=== PATIENT | female | born 1945 | race Caucasian/White ===

== ENCOUNTER 2022-10-09 11:39 | Day surgery (SDC) | payer MEDICARE ==
[2022-10-09] MEDS ORDERED: LIDOCAINE HCL 2% 100 MG/5 ML IJ ONE (11:40)
[2022-10-09] MEDS ORDERED: Reglan 10 MG/2 ML ONE (12:07)
[2022-10-09] MEDS ORDERED: Pepcid 20 MG VIAL IV ONE (12:07)
[2022-10-09] MEDS ORDERED: DIPRIVAN 200 MG/20 ML IV ONE (13:19)
[2022-10-09] MEDS ORDERED: Lactated Ringers 1,000 ML IV ONE (14:42)
--- NOTE | 2022-10-09 18:33 | XRAY ---
Indication: Right C2-C4 MBB. Intraoperative fluoroscopy provided for 13 seconds. 3 digital spot image submitted for interpretation demonstrates posterior needle tips projecting over the expected right C2-C4 nerve roots. Correlate with intraoperative findings/report.
--- NOTE | 2022-10-09 18:56 | XRAY ---
13 seconds of fluoroscopy was used in surgery for a right C2-C4 MBB.
== END 2022-10-09 13:46 | disposition home or self-care (01) ==
LOC: SDC-PAIN 11:39
PROVIDERS: ATTEND Psychiatry & Neurology Pain Medicine
DX: M47.812 Spondylosis without myelopathy or radiculopathy, cervical region (principal); E11.9 Type 2 diabetes mellitus without complications; Z79.899 Other long term (current) drug therapy
CPT/HCPCS: 64490; 64491; 72040; 77002; 82947; J2704

== ENCOUNTER 2022-11-20 10:07 | Day surgery (SDC) | payer MEDICARE ==
[2022-11-20] MEDS ORDERED: LIDOCAINE HCL 2% 100 MG/5 ML IJ ONE (10:08)
[2022-11-20] MEDS ORDERED: Reglan 10 MG/2 ML ONE (11:31)
[2022-11-20] MEDS ORDERED: Pepcid 20 MG VIAL IV ONE (11:31)
[2022-11-20] MEDS ORDERED: DIPRIVAN 200 MG/20 ML IV ONE (12:37)
[2022-11-20] MEDS ORDERED: Lactated Ringers 1,000 ML IV ONE (13:37)
--- NOTE | 2022-11-20 14:32 | XRAY ---
Indication: Left C2-C4 MBB. Intraoperative fluoroscopy provided for 22 seconds. 3 digital spot images submitted for interpretation demonstrates posterior needle tips projecting over the expected left C2-C4 nerve roots. Correlate with intraoperative findings/report.
--- NOTE | 2022-11-20 14:51 | XRAY ---
22 seconds of fluoroscopy was used in surgery for a left C2-C4 MBB.
== END 2022-11-20 12:01 | disposition home or self-care (01) ==
LOC: SDC-PAIN 10:07
PROVIDERS: ATTEND Psychiatry & Neurology Pain Medicine
DX: M47.812 Spondylosis without myelopathy or radiculopathy, cervical region (principal); E11.9 Type 2 diabetes mellitus without complications; Z79.899 Other long term (current) drug therapy
CPT/HCPCS: 64490; 64491; 72040; 77002; 82947; J2704